=== PATIENT | female | born 1960 | race American Indian/Alaskan Native ===

== ENCOUNTER 2016-12-07 12:37 | Inpatient (IN) | payer MEDICAID ==
--- NOTE | 2016-12-07 13:47 | Emergency Department Report ---
Chief Complaint: Neuro Symptoms/Deficit Stated Complaint: LIGHT VAGINAL BLEEDING Time Seen by Provider: 12/07/16 13:20 - HPI History of Present Illness: 56-year-old female presents with a weight left-sided numbness and chest mumbled speech 1 week. Patient also complaining of sore throat and productive cough that causes her to have abdominal pain. The patient also complaining of vaginal bleeding 3-4 days. Positive for history of hypertension and dental tumor. Unable to obtain full history due to lack of responsiveness. - ROS Review of Systems: Per HPI - Exam Vital Signs: Vital Signs 12/07/16 13:09 Temperature 97.2 F L Pulse Rate 106 H Respiratory 18 Rate Blood Pressure 143/86 O2 Sat by Pulse 100 Oximetry Physical Exam: General: 56-year-old female that appears lethargic CV: Regular rate and rhythm. Lungs: Clear to auscultation bilaterally. Neuro: Alert and oriented 3, normal gait, mumbled speech, EOMs intact, asymmetrical facial sensation, GCS equals 15. MSE screening note: Focused history and physical exam performed. Due to findings the following was ordered: ED Disposition for MSE Condition: Stable
[2016-12-07 14:28] LABS: Basophils % (Auto) 0.5 % (0.0-1.8); Eosinophils % (Auto) 0.1 % (0.0-4.3); Hematocrit 39.6 % (30.3-42.9); Hemoglobin 13.2 gm/dl (10.1-14.3); Mean Corpuscular HGB Conc 33 % (30-34); Mean Corpuscular Hemoglobin 30 pg (28-32); Mean Corpuscular Volume 90 fl (79-97); Platelet Count 179 K/mm3 (140-440); Red Cell Distribution Width 14.1 % (13.2-15.2); White Blood Count 4.3 K/mm3 (4.5-11.0)
--- NOTE | 2016-12-07 14:45 | Emergency Department Report ---
HPI - General Chief Complaint: Neuro Symptoms/Deficit Time Seen by Provider: 12/07/16 13:56 - HPI HPI: This is a 56-year-old [place]ro[place] female who presents to the emergency Department with multiple complaints. Patient says she has been having a 3 to four-day history of a productive cough. The sputum is clear but she does not feel like she can completely expectorate. She complains of a 3 day history of some generalized abdominal pain that is worse than the upper quadrants. Associated with some constipation but she denies any nausea, vomiting, fever, dysuria, vaginal bleeding or discharge. Finally, the patient complains of a one -week history of left-sided facial droop, left arm numbness. The patient has not taken anything for any of her symptoms prior to presentation. She has a history of hypertension but denies any history of ND, CVA, PE/DVT. Patient does not currently have a primary care doctor. She has not taken anything for symptoms prior to presentation. No recent travel or sick contacts at home. ED Past Medical Hx - Past Medical History Hx Hypertension: Yes Hx Psychiatric Treatment: Yes (schizophrenia) Additional medical history: Constipation - Surgical History Additional Surgical History: pt reports tumor from left upper gums - Social History Smoking Status: Never Smoker Substance Use Type: Alcohol - Medications Home Medications: Home Medications Medication Instructions Recorded Confirmed Last Taken Type Hydrocortisone [Anucort-HC SUPPOS] 25 mg RC BID #14 supp.rect 01/25/16 12/07/16 Unknown Rx Loxapine Succinate [Loxapine] 10 mg PO DAILY 01/25/16 12/07/16 Unknown History Chlorhexidine Gluconate [Paroex] 473 ml MM BID #1 mouthwash 07/22/16 12/07/16 Unknown Rx ED Review of Systems ROS: Stated complaint: LIGHT VAGINAL BLEEDING Other details as noted in HPI Comment: All other systems reviewed and negative Constitutional: denies: chills, fever Eyes: denies: eye pain, eye discharge, vision change ENT: throat pain, other (facial droop) Respiratory: cough. denies: shortness of breath Cardiovascular: denies: chest pain, edema Gastrointestinal: abdominal pain, constipation. denies: nausea, vomiting Genitourinary: denies: urgency, dysuria, discharge Musculoskeletal: denies: back pain, joint swelling, arthralgia Skin: denies: rash, lesions Neurological: numbness. denies: headache Physical Exam - Physical Exam Vital Signs: Vital Signs 12/07/16 13:09 Temperature 97.2 F L Pulse Rate 106 H Respiratory 18 Rate Blood Pressure 143/86 O2 Sat by Pulse 100 Oximetry Physical Exam: GENERAL: The patient is well-developed well-nourished. HEENT: Normocephalic. Atraumatic. Extraocular motions are intact but there is a lag. Patient has moist mucous membranes. Pupils equal reactive to light bilaterally. There is left-sided nasolabial full paresis. No drooling or trismus. Unable to evaluate patient's ability to raise her eyebrows but she appears to be able to close both eyes tightly. NECK: Supple. Trachea is midline. CHEST/LUNGS: Clear to auscultation. There is no respiratory distress noted. HEART/CARDIOVASCULAR: Regular. There is no tachycardia. There is no gallop rub or murmur. ABDOMEN: Abdomen is soft, nontender. Patient has normal bowel sounds. There is no abdominal distention. SKIN: There is no rash. There is no diaphoresis. NEURO: The patient is awake, alert, and oriented. The patient is cooperative. There is decreased subjective left-sided facial and upper extremity sensation and/or numbness when compared to the right side. The patient has normal speech. No pronator drift. MUSCULOSKELETAL: There is no tenderness or deformity. There is no limitation range of motion. There is no evidence of acute injury. ED Course Vital Signs 12/07/16 13:09 Temperature 97.2 F L Pulse Rate 106 H Respiratory 18 Rate Blood Pressure 143/86 O2 Sat by Pulse 100 Oximetry ED Medical Decision Making - Lab Data Result diagrams: 12/07/16 14:16 12/07/16 14:16 - EKG Data -: EKG Interpreted by Me EKG shows normal: sinus rhythm, axis, intervals, QRS complexes, ST-T waves ( nonspecific ST-T waves) Rate: normal - EKG Data When compared to previous EKG there are: previous EKG unavailable Interpretation: nonspecific ST-T wave brian - Radiology Data Radiology results: report reviewed, image reviewed interpreted by me: Chest x-ray did not show any acute process. Heart is normal shape and size. No effusions. No pneumothorax. No signs of pneumonia seen. Abdominal x-ray does not show any acute process. CT of the head without contrast shows no acute intracranial CT abnormality. - Medical Decision Making 56 year old female presents with multiple complaints. The one that is the most concerning is left-sided facial droop and some left-sided numbness. There has been going on for a week and this alone would cause the patient not to be a TPA candidate. On physical exam the patient does have some left-sided facial/nasal labial fold paresis. The numbness is subjective. CT of head does not show any acute intracranial process. However with these findings the patient will be admitted to hospital for further evaluation and treatment and has been accepted for admission by the hospitalist, Dr. Mueller. Regarding the patient's cough, a chest x-ray was done that does not show any pneumonia. Possibly could be some bronchitis but there is no current bronchospasm. Patient's abdominal labs as well as x-ray also did not show any acute process and do not require any further imaging at this time. - Differential Diagnosis CVA, TIA, brain bleed, bronchitis, pneumonia Critical Care Time: No Critical care attestation.: If time is entered above; I have spent that time in minutes in the direct care of this critically ill patient, excluding procedure time. ED Disposition Clinical Impression: Facial droop, Numbness on left side, Cough Obesity Qualifiers: Obesity type: unspecified obesity type Obesity severity: morbid Qualified Code( s): E66.01 - Morbid (severe) obesity due to excess calories Disposition: OP ADMITTED IP TO THIS HOSP Is pt being admited?: Yes Does the pt Need Aspirin: Yes Condition: Stable Time of Disposition: 16:34
[2016-12-07 14:49] LABS: INR 0.99 (0.87-1.13)
[2016-12-07 14:50] LABS: Partial Thromboplastin Time 30.8 Sec. (24.2-36.6)
[2016-12-07 14:51] LABS: Creatine Kinase MB 1.4 ng/mL (0.0-4.0)
[2016-12-07 14:52] LABS: BUN/Creatinine Ratio 12.22; Blood Urea Nitrogen 11 mg/dL (7-17); Calcium 8.7 mg/dL (8.4-10.2); Carbon Dioxide 32 mmol/L (22-30); Chloride 93.1 mmol/L (98-107); Creatine Kinase 833 units/L (30-135); Glucose 126 mg/dL (65-100); Sodium 139 mmol/L (137-145)
[2016-12-07 14:56] LABS: Anion Gap 16 mmol/L
[2016-12-07 14:57] LABS: Potassium 2.5 mmol/L (3.6-5.0)
[2016-12-07] MEDS ORDERED: K-DUR PO ONE (14:58)
[2016-12-07 15:05] LABS: Albumin 3.7 g/dL (3.9-5); Albumin/Globulin Ratio 0.8 %; Bilirubin,Direct 0.2 mg/dL (0-0.2); Bilirubin,Indirect 0.9 mg/dL; Bilirubin,Total 1.1 mg/dL (0.1-1.2); Total Protein 8.5 g/dL (6.3-8.2)
--- NOTE | 2016-12-07 15:06 | Cat Scan Report ---
CT HEAD WITHOUT CONTRAST INDICATION: Suspected stroke. COMPARISON: None similar at this institution. FINDINGS: Noncontrast head CT demonstrates normal ventricles and sulci without acute or recent infarct, hemorrhage, mass effect or midline shift. No abnormal extra-axial fluid collections. Posterior fossa structures and basilar cisterns appear within normal limits. Streak artifact from few dental fillings. Normal eye globes. However, extensive left facial post surgical changes, including resection of left maxilla, including the maxillary sinus noted with some mesh reconstruction inferiorly. Small caro/clips also noted medially in the left orbit. Mild to moderate bilateral ethmoid sinusitis with mild bilateral frontal, sphenoid and right maxillary sinus mucosal thickening seen. Clear right mastoid air cells. Left otomastoiditis noted. Intact calvarium. Normal scalp. CONCLUSION: No acute intracranial CT abnormality in this patient with sinusitis, left otomastoiditis and left maxillary resection with reconstruction noted, as described. Please correlate. Thank you for the opportunity to participate in this patient's care.
[2016-12-07] MEDS ORDERED: NACL 0.9% 1000 ML 1,000 ML ONE (15:15)
--- NOTE | 2016-12-07 15:33 | XRay Report ---
ABDOMINAL SERIES INDICATION: Cough, abdominal pain. COMPARISON: None similar. FINDINGS: Abdominal series, 6 radiographs, demonstrate nonobstructive bowel gas pattern without focal suspicious calcifications, pneumatosis or pneumoperitoneum. Moderate colonic stool, greatest along the ascending colon/possible constipation. Few small pelvic phleboliths. Accompanying chest radiograph demonstrates borderline cardiomegaly. Slight bronchovascular prominence without dense focal consolidation, pleural effusions or CHF. Various bony degenerative changes, including multilevel spinal spurring as also possible bilateral SI joint sclerosis. CONCLUSION: Possible constipation and few other incidental findings, as above. Thank you for the opportunity to participate in this patient's care.
[2016-12-07 15:58] LABS: Urine Drugs of Abuse Note Disclamer
[2016-12-07 16:26] LABS: Bacteria,Urine 1+ /HPF (Negative); Bilirubin,Urine NEG (Negative); Blood,Urine MOD (Negative); Ketones,Urine TR mg/dL (Negative); Leukocyte Esterase,Urine NEG (Negative); Nitrite,Urine NEG (Negative); Urobilinogen,Urine < 2.0 mg/dL (<2.0)
[2016-12-07] MEDS: KCL 10MEQ/100ML 100 ML IV SCH ×4 (16:31→21:32)
[2016-12-07] MEDS ORDERED: BABY ASPIRIN PO ONE (16:34)
--- NOTE | 2016-12-07 16:35 | Admit Criteria Form ---
Admission Criteria Documentation: TRANSIENT ISCHEMIC ATTACK (TIA) Clinical Indications for Admission to Inpatient Care (Place 'X' for any and all applicable criteria): Admission is indicated for ANY ONE of the following(1)(2)(3)(4)(5): [ ]I. Immediate inpatient procedure is needed (eg, endarterectomy). [X ]II. Inpatient admission required rather than observation care (Also use Transient Ischemic Attack (TIA): Observation Care Criteria as appropriate) because of ANY ONE of the following: [X ]a) Focal neurologic signs or symptoms persist or recurring [ ]b) Cardiac arrhythmias of immediate concern [ ]c) Clinically significant cardiac disorder identified that requires inpatient care (eg, severe valvular disease, atrial myxoma, cardiomyopathy) [ ]d) Hypertension requiring inpatient treatment [ ]e) Parenteral anticoagulation required (eg, alternative forms of anticoagulation not appropriate or not feasible) as indicated by ALL of the following(13): [ ]i) Temporary subtherapeutic anticoagulation unacceptable because of high risk of short-term venous or arterial thromboembolism due to ANY ONE of the following(14)(15)(16): [ ]1) Atrial fibrillation suspected as etiology of TIA(17)(18)(19)(20)(21) [ ]2) Venous thromboembolism within past 12 months [ ]3) Underlying malignancy [ ]4) Patient with mechanical cardiac valve(22)( 23) [ ]5) Underlying hypercoagulable state (eg, protein C or protein S deficiency antithrombin deficiency, antiphospholipid antibodies) [ ]6) Patient at temporary high risk of thromboembolism (eg, status post orthopedic surgery) [ ]ii) Contraindications to outpatient use of "bridging" agent or alternative oral anticoagulant[B] as indicated by ALL of the following: [ ]1) Contraindication to outpatient use of low- molecular-weight heparin as "bridging" agent as indicated by ANY ONE of the following(15): [ ]A. Documented current or history of heparin-induced thrombocytopenia(24) [ ]B. Severe thrombocytopenia (eg, platelet count less than 50,000/mm3 (67m990/L) [ ]C. Documented allergy to heparin, low- molecular-weight heparin, or pork products [ ]D. Renal failure (creatinine clearance less than 30 mL/min/1.73m2 (0.50mL/sec/1.73m2) or on dialysis) [ ]E. Inability to manage self-injection ( eg, by patient, caregiver, or visiting nurse) [ ]2) Contraindication to outpatient use of fondaparinux as "bridging" agent as indicated by ANY ONE of the following(25)(26 )(27)(28): [ ]A. Severe thrombocytopenia (eg, platelet count less than 50,000/mm3 (50 x109/L)) [ ]B.Hypersensitivity to fondaparinux, related drugs, or product components [ ]C.Renal failure (creatinine clearance less than 30 mL/min/1.73m2 (0.50mL/sec/1.73m2) or on dialysis) [ ]D.Inability to manage self-injection ( eg, by patient, caregiver, or visiting nurse [ ]3. Oral direct thrombin inhibitor (eg, dabigatran) or oral coagulation factor Xa inhibitor (eg, rivaroxaban, apixaban) not appropriate as oral anticoagulation (eg, indication not appropriate) or contraindicated (eg, hypersensitivity, creatinine clearance less than 15 mL/min/1.73m2 ( 0.25 mL/sec/1.73m2) or on dialysis). [ ]f) Continuous IV infusion of anticoagulant, platelet inhibitor, vasoactive or antiarrhythmia(18)(19) [ ]g) Other condition, treatment, or monitoring requiring inpatient admission [ ]III. Contraindications and/or Inappropriate clinical situations for Observational Care in patients with Transient Ischemic Attack (TIA), when ANY ONE of the following is required: [ ]a) Patient with persistent or severe neurological deficit 24 [ ]b) Patient with acute CVA or other identified pathology should be admitted to inpatient for further care 25 [ ]IV. General contraindications and/or Inappropriate clinical situations for Observational Care in patients with Transient Ischemic Attack (TIA), when ANY ONE of the following is required: [ ]a) Prediction of prolongation of LOS based on ANY ONE of the following may be considered as a contraindication for observational care 2, 3, 4, 5, 6, 7, 8, 9, 10, 11 [ ]i) Age > 65 yrs. [ ]ii) Patient arriving by ambulance [ ]iii) Patient with high acuity [ ]iv) Patient requiring vital sign monitoring [ ]v) Patient on IV medication [ ]b) Systolic blood pressures 180mmHg 3,12 [ ]c) Patient with altered mental status including delirium and other alteration of consciousness, (3) [ ]d) Patient whose discharge disposition will be to a [place] [facility] home or rehabilitation home should not be managed in Emergency Department Observation Unit. CMS rule requires 3 days hospital stay before such placement.3,13 [ ]e) Patient with failure to thrive due to broad array of etiologies 3,16,17 [ ]f) Inability to ambulate 3,14 Extended stay beyond goal length of stay may be needed for(4)(30)(32): [ ]a) Parenteral anticoagulation required [ ]b) Dangerous arrhythmia [ ]c) Cardiac valvular disorder, atrial myxoma, cardiomyopathy [ ]d) Uncontrolled severe hypertension [ ]e) Severe carotid stenosis [ ]f) Active comorbidities (eg, heart failure) [ ]g) Extracranial vertebrobasilar disease(29) [ ]h) Clinical evolution of TIA into cerebrovascular accident (stroke) The original [employer] content created by [employer] has been revised. The portions of thecontent which have been revised are identified through the use of italic text or in bold, and [facility] has neither reviewed nor approved the modified material. All other unmodified content is copyright [employer] [facility]. Please see references footnoted in the original [employer] [facility] [facility] edition 2016 Admission Criteria Met: Yes
[2016-12-07 17:43] LABS: Basophils % (Auto) 0.6 % (0.0-1.8); Eosinophils % (Auto) 0.3 % (0.0-4.3); Hematocrit 38.2 % (30.3-42.9); Hemoglobin 12.6 gm/dl (10.1-14.3); Mean Corpuscular HGB Conc 33 % (30-34); Mean Corpuscular Hemoglobin 30 pg (28-32); Mean Corpuscular Volume 90 fl (79-97); Platelet Count 172 K/mm3 (140-440); Red Blood Count 4.25 M/mm3 (3.65-5.03); Red Cell Distribution Width 14.4 % (13.2-15.2); White Blood Count 4.3 K/mm3 (4.5-11.0)
[2016-12-07 17:58] LABS: INR 0.99 (0.87-1.13)
[2016-12-07 17:59] LABS: Partial Thromboplastin Time 31.5 Sec. (24.2-36.6)
[2016-12-07 18:06] LABS: Alanine Aminotransferase 27 units/L (7-56); Albumin 3.5 g/dL (3.9-5); Albumin/Globulin Ratio 0.8 %; Alkaline Phosphatase 54 units/L (35-129); Blood Urea Nitrogen 10 mg/dL (7-17); Calcium 8.3 mg/dL (8.4-10.2); Carbon Dioxide 34 mmol/L (22-30); Chloride 94.9 mmol/L (98-107); Glucose 106 mg/dL (65-100); Sodium 140 mmol/L (137-145); Total Protein 7.8 g/dL (6.3-8.2)
[2016-12-07 18:21] LABS: Anion Gap 14 mmol/L; Potassium 2.6 mmol/L (3.6-5.0)
--- NOTE | 2016-12-07 20:37 | Magnetic Resonance Report ---
FINAL REPORT PROCEDURE: MR BRAIN WO CON TECHNIQUE: Magnetic resonance imaging of the brain was performed without contrast material. HISTORY: Suspected Stroke COMPARISON: CT exam from the same day FINDINGS: Cerebellar tonsils are normally positioned cerebral ventricles are normal in size. No areas of restricted diffusion are seen. Mild mucosal thickening is seen in the paranasal sinuses with fluid in the left mastoid air cells and left middle ear. Normal flow voids are seen in the visualized portions of the vessels of the [place]. Cerebral ventricles are normal in size. A few tiny foci of increased T2 signal are seen in the supratentorial white matter likely due to minimal chronic small vessel ischemic changes are these may be within normal limits given their only a few of the lesions. No evidence of intracranial hemorrhage or mass effect is seen. IMPRESSION: Possible very minimal chronic small vessel ischemic changes are seen but no evidence of recent CVA is seen. Fluid in the left mastoid air cells and left middle ear could possibly be due to mastoiditis and otitis media.
--- NOTE | 2016-12-07 20:50 | Magnetic Resonance Report ---
FINAL REPORT PROCEDURE: MR MRA/MRV NECK WO CON TECHNIQUE: MR angiography of the cervical carotid and vertebral arteries was performed without IV injection of paramagnetic contrast. The source images were reconstructed in various views using maximum intensity projection. HISTORY: stroke COMPARISON: No prior studies are available for comparison. FINDINGS: Vertebral arteries are codominant. No vertebral artery stenosis is seen. Origins of the CCAs are not well visualized. There is likely negligible stenosis in the origins of the ICAs bilaterally, less than 20 percent. IMPRESSION: No significant stenosis is seen.
[2016-12-07] MEDS ORDERED: PERIDEX MM SCH (22:00)
[2016-12-07] MEDS ORDERED: ANUCORT-HC PR SCH (22:00)
[2016-12-07] MEDS: LOVENOX SUB-Q SCH (23:50)
--- NOTE | 2016-12-07 23:57 | History and Physical Report ---
History of Present Illness Date of examination: 12/07/16 Date of admission: 12/07/16 17:01 Chief complaint: Left facial droop and numbness History of present illness: Patient is a 56-year-old lady who lives home with a history of hypertension, memory loss and schizophrenia was noted to have had a left facial droop. Was brought to the emergency department. At emergency department, a family members stated that her face has returned to baseline status. Has slight right-sided upper arm weakness. Of note is the patient had surgery in the past for excision of a left sided [place] tumor. Patient also complains of cough was productive of yellowish sputum. Has any fever. No chest pain. No chills. CT scan of the brain was unremarkable. Electrolytes studies showed hypokalemia of 2.5. 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) Social history: denies: smoking, alcohol abuse, IV drug use Medications and Allergies Allergies Allergy/AdvReac Type Severity Reaction Status Date / Time No Known Allergies Allergy Verified 12/07/16 15:05 Home Medications Medication Instructions Recorded Confirmed Last Taken Type Hydrocortisone [Anucort-HC SUPPOS] 25 mg RC BID #14 supp.rect 01/25/16 12/07/16 Unknown Rx Loxapine Succinate [Loxapine] 10 mg PO DAILY 01/25/16 12/07/16 Unknown History Chlorhexidine Gluconate [Paroex] 473 ml MM BID #1 mouthwash 07/22/16 12/07/16 Unknown Rx Active Meds: Active Medications Atorvastatin Calcium (Lipitor) 20 mg PO QHS [facility] Last Admin: 12/07/16 23:50 Dose: 20 mg Chlorhexidine Gluconate (Peridex) 473 ml MM BID [facility] Enoxaparin Sodium (Lovenox) 40 mg SUB-Q QDAY@2200 [facility] Last Admin: 12/07/16 23:50 Dose: 40 mg Hydrocortisone Acetate (Anucort-Hc) [address] BID [facility] Exam - Physical Exam Narrative exam: Constitutional: Well Nouridhed and Well developed. Head: NC/ AT Eyes: Denies any visual impairments. No discharge from the eyes Nose: Denies any rhinorrhea or epistaxis Throats: Denies any post nasal drainage. Ears: Denies any hearing deficits Cardiovascular system: Denies any chest pain, shortness of breath, orthopnea, paroxysmal nocturnal dyspnea, or palpitation. Respiratory system: Denies any cough, difficulty breathing, wheezing, pleuritic chest pain, Gastrointestinal system: Denies any abdominal pain, nausea vomiting, hematemesis or melena. Neurological system: Denies any headache, slurred speech, facial droop, lateralizing weakness Genitalia system: Denies any dysuria, urinary frequency or urgency, urethral discharge Skin: No rashes, hyperpigmented spots. Hematological: Denies any cervical tenderness hemorrhages or petechia. Immunological: Denies any multiple septic spots, Lymphatic: Denies any generalized lymphadenopathy. Endocrine: Denies any polyuria, polydipsia, polyphagia. No heat or cold intolerance. - Constitutional Vitals: Temp Pulse Resp BP Pulse Ox 97.7 F 97 H 20 155/99 97 12/07/16 21:41 12/07/16 21:41 12/07/16 21:41 12/07/16 21:41 12/07/16 21:45 General appearance: Present: no acute distress, well-nourished - EENT Eyes: Present: PERRL ENT: hearing intact, clear oral mucosa - Neck Neck: Present: supple, normal ROM - Respiratory Respiratory effort: normal Respiratory: bilateral: CTA - Cardiovascular Heart Sounds: Present: S1 & S2. Absent: rub, click - Extremities Extremities: pulses symmetrical, No edema Peripheral Pulses: within normal limits - Abdominal General gastrointestinal: Present: soft, non-tender, non-distended, normal bowel sounds Female genitourinary: Present: normal - Integumentary Integumentary: Present: clear, warm, dry - Musculoskeletal Musculoskeletal: gait normal, strength equal bilaterally - Psychiatric Psychiatric: appropriate mood/affect, intact judgment & insight - Neurologic Neurologic: CNII-XII intact, moves all extremities Results - Labs CBC & Chem 7: 12/07/16 17:29 12/07/16 17:29 Labs: Abnormal lab results 12/07/16 12/07/16 12/07/16 Range/Units 17:29 17:29 17:29 WBC 4.3 L (4.5-11.0) K/mm3 Lee % (Auto) 10.7 H (0.0-7.3) % Lymph # 0.9 L (1.2-5.4) K/mm3 Thrombin Time 20.0 H (15.1-19.6) Sec. Potassium 2.6 L* (3.6-5.0) mmol/L Chloride 94.9 L (98-107) mmol/L Carbon Dioxide 34 H (22-30) mmol/L Glucose 106 H (65-100) mg/dL Calcium 8.3 L (8.4-10.2) mg/dL AST 44 H (5-40) units/L Albumin 3.5 L (3.9-5) g/dL
[2016-12-08 06:01] LABS: Alanine Aminotransferase 25 units/L (7-56); Albumin 3.4 g/dL (3.9-5); Albumin/Globulin Ratio 0.9 %; Alkaline Phosphatase 50 units/L (35-129); BUN/Creatinine Ratio 11.42; Blood Urea Nitrogen 8 mg/dL (7-17); Calcium 8.1 mg/dL (8.4-10.2); Carbon Dioxide 33 mmol/L (22-30); Chloride 95.7 mmol/L (98-107); Glucose 109 mg/dL (65-100); Magnesium 2.3 mg/dL (1.7-2.3); Phosphorous 2.3 mg/dL (2.5-4.5); Sodium 140 mmol/L (137-145); Total Protein 7.2 g/dL (6.3-8.2)
[2016-12-08 06:09] LABS: Anion Gap 14 mmol/L; Potassium 2.4 mmol/L (3.6-5.0)
[2016-12-08] MEDS ORDERED: K-DUR PO SCH (07:00)
[2016-12-08] MEDS: K-DUR PO SCH ×2 (09:41→17:25)
[2016-12-08] MEDS: PERIDEX MM SCH ×2 (09:43→21:57)
[2016-12-08] MEDS ORDERED: LOVENOX SUB-Q SCH (10:00)
[2016-12-08] MEDS: NACL 0.45% IV SCH (11:09)
[2016-12-08] MEDS: KCL IV SCH (11:09)
--- NOTE | 2016-12-08 11:46 | Progress Note ---
Assessment and Plan Assessment and plan: 56 obese woman who presented with left sided facial droop, which is now resolved 1. suspected TIA MRI negative, preventive measures, asa, statin, BP control 2. Hypokalemia replete IV and PO 3. HTN actually normotensive and not requiring meds 4. Morbid obesity calorie controlled diet History Interval history: Denies any further facial droop, no focal weakness. Hospitalist Physical - Physical exam Narrative exam: General: Patient appears well in no distress, obese HEENT: MMM, EOMI cardiac: S1-S2 heard lungs: clear to auscultation, abdomen: soft, nontender, nondistended bowel sounds positive extremities: no edema clubbing or cyanosis Skin: no rash or lesion Neuro: no focal deficit Psych: appropriate behavior and mood, cognition intact - Constitutional Vitals: Temp Pulse Resp BP Pulse Ox 98.7 F 88 16 131/73 95 12/08/16 08:00 12/08/16 08:00 12/08/16 08:00 12/08/16 08:00 12/08/16 08:47 General appearance: Present: no acute distress, well-nourished Results - Labs CBC & Chem 7: 12/07/16 17:29 12/08/16 05:05 Labs: Laboratory Last Values WBC 4.3 K/mm3 (4.5-11.0) L 12/07/16 17:29 RBC 4.25 M/mm3 (3.65-5.03) 12/07/16 17:29 Hgb 12.6 gm/dl (10.1-14.3) 12/07/16 17:29 Hct 38.2 % (30.3-42.9) 12/07/16 17:29 MCV 90 fl (79-97) 12/07/16 17:29 MCH 30 pg (28-32) 12/07/16 17:29 MCHC 33 % (30-34) 12/07/16 17:29 RDW 14.4 % (13.2-15.2) 12/07/16 17:29 Plt Count 172 K/mm3 (140-440) 12/07/16 17:29 Lymph % (Auto) 20.6 % (13.4-35.0) 12/07/16 17:29 [place] % (Auto) 10.7 % (0.0-7.3) H 12/07/16 17:29 Eos % (Auto) 0.3 % (0.0-4.3) 12/07/16 17:29 Baso % (Auto) 0.6 % (0.0-1.8) 12/07/16 17:29 Lymph # 0.9 K/mm3 (1.2-5.4) L 12/07/16 17:29 [place] # 0.5 K/mm3 (0.0-0.8) 12/07/16 17:29 Eos # 0.0 K/mm3 (0.0-0.4) 12/07/16 17:29 Baso # 0.0 K/mm3 (0.0-0.1) 12/07/16 17:29 Seg Neutrophils % 67.8 % (40.0-70.0) 12/07/16 17:29 Seg Neutrophils # 2.9 K/mm3 (1.8-7.7) 12/07/16 17:29 PT 13.0 Sec. (12.2-14.9) 12/07/16 17:29 INR 0.99 (0.87-1.13) 12/07/16 17:29 APTT 31.5 Sec. (24.2-36.6) 12/07/16 17:29 Thrombin Time 20.0 Sec. (15.1-19.6) H 12/07/16 17:29 Sodium 140 mmol/L (137-145) 12/08/16 05:05 Potassium 2.4 mmol/L (3.6-5.0) L* 12/08/16 05:05 Chloride 95.7 mmol/L (98-107) L 12/08/16 05:05 Carbon Dioxide 33 mmol/L (22-30) H 12/08/16 05:05 Anion Gap 14 mmol/L 12/08/16 05:05 BUN 8 mg/dL (7-17) 12/08/16 05:05 Creatinine 0.7 mg/dL (0.7-1.2) 12/08/16 05:05 Estimated GFR > 60 ml/min 12/08/16 05:05 BUN/Creatinine Ratio 11.42 % 12/08/16 05:05 Glucose 109 mg/dL (65-100) H 12/08/16 05:05 Calcium 8.1 mg/dL (8.4-10.2) L 12/08/16 05:05 Phosphorus 2.3 mg/dL (2.5-4.5) L 12/08/16 05:05 Magnesium 2.3 mg/dL (1.7-2.3) 12/08/16 05:05 Total Bilirubin 1.0 mg/dL (0.1-1.2) 12/08/16 05:05 Direct Bilirubin 0.2 mg/dL (0-0.2) 12/07/16 14:16 Indirect Bilirubin 0.9 mg/dL 12/07/16 14:16 AST 39 units/L (5-40) 12/08/16 05:05 ALT 25 units/L (7-56) 12/08/16 05:05 Alkaline Phosphatase 50 units/L (35-129) 12/08/16 05:05 Total Creatine Kinase 833 units/L (30-135) H 12/07/16 14:16 CK-MB (CK-2) 1.4 ng/mL (0.0-4.0) 12/07/16 14:16 CK-MB (CK-2) Rel Index 0.1 (0-4) 12/07/16 14:16 Troponin T < 0.010 ng/mL (0.00-0.029) 12/07/16 14:16 Total Protein 7.2 g/dL (6.3-8.2) 12/08/16 05:05 Albumin 3.4 g/dL (3.9-5) L 12/08/16 05:05 Albumin/Globulin Ratio 0.9 % 12/08/16 05:05 Lipase 36 units/L (13-60) 12/07/16 14:16 TSH 2.230 mlU/mL (0.270-4.200) 12/07/16 15:27 Urine Color Yellow (Yellow) 12/07/16 15:47 Urine Turbidity Clear (Clear) 12/07/16 15:47 Urine pH 6.0 (5.0-7.0) 12/07/16 15:47 Ur Specific [place] 1.015 (1.003-1.030) 12/07/16 15:47 Urine Protein 30 mg/dl mg/dL (Negative) 12/07/16 15:47 Urine Glucose (UA) Neg mg/dL (Negative) 12/07/16 15:47 Urine Ketones Tr mg/dL (Negative) 12/07/16 15:47 Urine Blood Mod (Negative) 12/07/16 15:47 Urine Nitrite Neg (Negative) 12/07/16 15:47 Urine Bilirubin Neg (Negative) 12/07/16 15:47 Urine Urobilinogen < 2.0 mg/dL (<2.0) 12/07/16 15:47 Ur Leukocyte Esterase Neg (Negative) 12/07/16 15:47 Urine WBC (Auto) 4.0 /HPF (0.0-6.0) 12/07/16 15:47 Urine RBC (Auto) 2.0 /HPF (0.0-6.0) 12/07/16 15:47 U Epithel Cells (Auto) 3.0 /HPF (0-13.0) 12/07/16 15:47 Urine Bacteria (Auto) 1+ /HPF (Negative) 12/07/16 15:47 Urine Opiates Screen Presumptive negative 12/07/16 15:47 Urine Methadone Screen Presumptive negative 12/07/16 15:47 Ur Barbiturates Screen Presumptive negative 12/07/16 15:47 Ur Phencyclidine Scrn Presumptive negative 12/07/16 15:47 Ur Amphetamines Screen Presumptive negative 12/07/16 15:47 U Benzodiazepines Scrn Presumptive negative 12/07/16 15:47 Urine Cocaine Screen Presumptive negative 12/07/16 15:47 U Marijuana (THC) Screen Presumptive negative 12/07/16 15:47 Drugs of Abuse Note Disclamer 12/07/16 15:47
--- NOTE | 2016-12-08 13:25 | Consultation ---
History of Present Illness Consult date: 12/08/16 Chief complaint: left facial droop and weakness History of present illness: This is a 56 YO F who was brought in by family for facial droop and weakness on the left, all of which have since resolved. Pt is being worked up for TIa. MRI negative for acute stroke. Currently pt is feeling fine with no complaints. 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) Social history: denies: smoking, alcohol abuse, IV drug use Family history: hypertension Medications and Allergies Allergies Allergy/AdvReac Type Severity Reaction Status Date / Time No Known Allergies Allergy Verified 12/07/16 15:05 Home Medications Medication Instructions Recorded Confirmed Last Taken Type Hydrocortisone [Anucort-HC SUPPOS] 25 mg RC BID #14 supp.rect 01/25/16 12/07/16 Unknown Rx Loxapine Succinate [Loxapine] 10 mg PO DAILY 01/25/16 12/07/16 Unknown History Chlorhexidine Gluconate [Paroex] 473 ml MM BID #1 mouthwash 07/22/16 12/07/16 Unknown Rx Active Meds: Active Medications Aspirin (Aspirin) 325 mg PO QDAY [facility] Atorvastatin Calcium (Lipitor) 20 mg PO QHS [facility] Last Admin: 12/07/16 23:50 Dose: 20 mg Chlorhexidine Gluconate (Peridex) 15 ml MM BID [facility] Last Admin: 12/08/16 09:43 Dose: 15 ml Enoxaparin Sodium (Lovenox) 40 mg SUB-Q QDAY@2200 [facility] Last Admin: 12/07/16 23:50 Dose: 40 mg Potassium Chloride 80 meq/ (Sodium Chloride) 1,040 mls @ 100 mls/hr IV DIRECT [facility] Last Admin: 12/08/16 11:09 Dose: 100 mls/hr Potassium Chloride (K-Dur) 40 meq PO Q8H [facility] Stop: 12/10/16 01:01 Last Admin: 12/08/16 09:41 Dose: 40 meq Review of Systems Neurological: other (facial droop) Physical Examination - Vital Signs Vital Signs: Vital Signs Temp Pulse Resp BP Pulse Ox 97.2 F L 106 H 18 143/86 100 12/07/16 13:09 12/07/16 13:09 12/07/16 13:09 12/07/16 13:09 12/07/16 13:09 - EENT EENT: Present: PERRL - Respiratory Respiratory: Present: lungs clear - Cardiovascular Cardiovascular: Present: regular rate - Neurologic Cranial nerve examination: PERRL, EOMI, VFF, face symmetric, tongue midline Speech examination: intact Sensorimotor examination: intact Detailed motor examination: grossly full strength in Detailed sensory examination: intact Reflexes: 1+: ankle, bicep, knee, tricep Results - Laboratory Findings CBC and BMP: 12/07/16 17:29 12/08/16 05:05 Abnormal Lab Findings: Abnormal Labs 12/07/16 12/07/16 12/07/16 17:29 17:29 17:29 WBC 4.3 L [place] % (Auto) 10.7 H Lymph # 0.9 L Thrombin Time 20.0 H Potassium 2.6 L* Chloride 94.9 L Carbon Dioxide 34 H Glucose 106 H Calcium 8.3 L Phosphorus AST 44 H Albumin 3.5 L 12/08/16 05:05 WBC [place] % (Auto) Lymph # Thrombin Time Potassium 2.4 L* Chloride 95.7 L Carbon Dioxide 33 H Glucose 109 H Calcium 8.1 L Phosphorus 2.3 L AST Albumin 3.4 L - Diagnostic Findings Additional findings: MRI Brain with no acute changes Assessment and Plan TIA: Recommend: Agree with aspirin, lovenox and lipitor as you are doing Continue care for her medical issues as you are doing Pt should be discharged with aspirin and statin echo, carotids thank you for this consult. Call with questions.
[2016-12-08] MEDS: ASPIRIN PO SCH (14:07)
[2016-12-08] MEDS: LOVENOX SUB-Q SCH (21:56)
[2016-12-09] MEDS: K-DUR PO SCH (05:51)
[2016-12-09] MEDS: NACL 0.45% IV SCH (06:20)
[2016-12-09] MEDS: KCL IV SCH (06:20)
[2016-12-09 08:08] LABS: BUN/Creatinine Ratio 11.42; Blood Urea Nitrogen 8 mg/dL (7-17); Calcium 7.9 mg/dL (8.4-10.2); Carbon Dioxide 26 mmol/L (22-30); Chloride 99.8 mmol/L (98-107); Cholesterol 123 mg/dL (50-199); Glucose 101 mg/dL (65-100); HDL Cholesterol 38 mg/dL (40-59); LDL Cholesterol,Direct 67 mg/dL (50-130); Potassium 3.6 mmol/L (3.6-5.0); Sodium 139 mmol/L (137-145); Triglycerides 90 mg/dL (2-149)
[2016-12-09 08:09] LABS: Anion Gap 17 mmol/L
--- NOTE | 2016-12-09 11:33 | Progress Note ---
Assessment and Plan Assessment and plan: 56 obese woman who presented with left sided facial droop, which is now resolved 1. suspected TIA MRI negative, preventive measures, asa, statin, BP control neuro input appreciated, obtain echo, appears that facial droop is chronic and does not have any acute stroke related symptoms 2. Hypokalemia replete IV and PO, improving 3. HTN actually normotensive and not requiring meds 4. Morbid obesity calorie controlled diet 5. Constipation -stool softeners 6. Hx of Post menopausal spotting -outpatient MARKETING DESIGNER fup 7. Acute bronchitis low dose steroid, nebulizer, abx and cough syrup History Interval history: She had previous surgery to her cranium and has chronic facial droop, states that it is at baseline. She is c/o constipation Hospitalist Physical - Physical exam Narrative exam: General: Patient appears well in no distress, obese HEENT: MMM, EOMI cardiac: S1-S2 heard lungs: clear to auscultation, abdomen: soft, nontender, nondistended bowel sounds positive extremities: no edema clubbing or cyanosis Skin: no rash or lesion Neuro: no focal deficit Psych: appropriate behavior and mood, cognition intact - Constitutional Vitals: Temp Pulse Resp BP Pulse Ox 98.5 F 87 18 122/79 97 12/09/16 04:00 12/09/16 07:15 12/09/16 07:15 12/09/16 07:15 12/09/16 07:15 General appearance: Present: no acute distress, well-nourished Results - Labs CBC & Chem 7: 12/07/16 17:29 12/09/16 07:15 Labs: Laboratory Last Values WBC 4.3 K/mm3 (4.5-11.0) L 12/07/16 17:29 RBC 4.25 M/mm3 (3.65-5.03) 12/07/16 17:29 Hgb 12.6 gm/dl (10.1-14.3) 12/07/16 17:29 Hct 38.2 % (30.3-42.9) 12/07/16 17:29 MCV 90 fl (79-97) 12/07/16 17:29 MCH 30 pg (28-32) 12/07/16 17:29 MCHC 33 % (30-34) 12/07/16 17:29 RDW 14.4 % (13.2-15.2) 12/07/16 17:29 Plt Count 172 K/mm3 (140-440) 12/07/16 17:29 Lymph % (Auto) 20.6 % (13.4-35.0) 12/07/16 17:29 [place] % (Auto) 10.7 % (0.0-7.3) H 12/07/16 17:29 Eos % (Auto) 0.3 % (0.0-4.3) 12/07/16 17:29 Baso % (Auto) 0.6 % (0.0-1.8) 12/07/16 17:29 Lymph # 0.9 K/mm3 (1.2-5.4) L 12/07/16 17:29 [place] # 0.5 K/mm3 (0.0-0.8) 12/07/16 17:29 Eos # 0.0 K/mm3 (0.0-0.4) 12/07/16 17:29 Baso # 0.0 K/mm3 (0.0-0.1) 12/07/16 17:29 Seg Neutrophils % 67.8 % (40.0-70.0) 12/07/16 17:29 Seg Neutrophils # 2.9 K/mm3 (1.8-7.7) 12/07/16 17:29 PT 13.0 Sec. (12.2-14.9) 12/07/16 17:29 INR 0.99 (0.87-1.13) 12/07/16 17:29 APTT 31.5 Sec. (24.2-36.6) 12/07/16 17:29 Thrombin Time 20.0 Sec. (15.1-19.6) H 12/07/16 17:29 Sodium 139 mmol/L (137-145) 12/09/16 07:15 Potassium 3.6 mmol/L (3.6-5.0) D 12/09/16 07:15 Chloride 99.8 mmol/L (98-107) 12/09/16 07:15 Carbon Dioxide 26 mmol/L (22-30) D 12/09/16 07:15 Anion Gap 17 mmol/L 12/09/16 07:15 BUN 8 mg/dL (7-17) 12/09/16 07:15 Creatinine 0.7 mg/dL (0.7-1.2) 12/09/16 07:15 Estimated GFR > 60 ml/min 12/09/16 07:15 BUN/Creatinine Ratio 11.42 % 12/09/16 07:15 Glucose 101 mg/dL (65-100) H 12/09/16 07:15 POC Glucose 106 (70-105) H 12/08/16 15:46 Calcium 7.9 mg/dL (8.4-10.2) L 12/09/16 07:15 Phosphorus 2.3 mg/dL (2.5-4.5) L 12/08/16 05:05 Magnesium 2.3 mg/dL (1.7-2.3) 12/08/16 05:05 Total Bilirubin 1.0 mg/dL (0.1-1.2) 12/08/16 05:05 Direct Bilirubin 0.2 mg/dL (0-0.2) 12/07/16 14:16 Indirect Bilirubin 0.9 mg/dL 12/07/16 14:16 AST 39 units/L (5-40) 12/08/16 05:05 ALT 25 units/L (7-56) 12/08/16 05:05 Alkaline Phosphatase 50 units/L (35-129) 12/08/16 05:05 Total Creatine Kinase 833 units/L (30-135) H 12/07/16 14:16 CK-MB (CK-2) 1.4 ng/mL (0.0-4.0) 12/07/16 14:16 CK-MB (CK-2) Rel Index 0.1 (0-4) 12/07/16 14:16 Troponin T < 0.010 ng/mL (0.00-0.029) 12/07/16 14:16 Total Protein 7.2 g/dL (6.3-8.2) 12/08/16 05:05 Albumin 3.4 g/dL (3.9-5) L 12/08/16 05:05 Albumin/Globulin Ratio 0.9 % 12/08/16 05:05 Triglycerides 90 mg/dL (2-149) 12/09/16 07:15 Cholesterol 123 mg/dL (50-199) 12/09/16 07:15 LDL Cholesterol Direct 67 mg/dL (50-130) 12/09/16 07:15 HDL Cholesterol 38 mg/dL (40-59) L 12/09/16 07:15 Cholesterol/HDL Ratio 3.23 % 12/09/16 07:15 Lipase 36 units/L (13-60) 12/07/16 14:16 TSH 2.230 mlU/mL (0.270-4.200) 12/07/16 15:27 Urine Color Yellow (Yellow) 12/07/16 15:47 Urine Turbidity Clear (Clear) 12/07/16 15:47 Urine pH 6.0 (5.0-7.0) 12/07/16 15:47 Ur Specific [place] 1.015 (1.003-1.030) 12/07/16 15:47 Urine Protein 30 mg/dl mg/dL (Negative) 12/07/16 15:47 Urine Glucose (UA) Neg mg/dL (Negative) 12/07/16 15:47 Urine Ketones Tr mg/dL (Negative) 12/07/16 15:47 Urine Blood Mod (Negative) 12/07/16 15:47 Urine Nitrite Neg (Negative) 12/07/16 15:47 Urine Bilirubin Neg (Negative) 12/07/16 15:47 Urine Urobilinogen < 2.0 mg/dL (<2.0) 12/07/16 15:47 Ur Leukocyte Esterase Neg (Negative) 12/07/16 15:47 Urine WBC (Auto) 4.0 /HPF (0.0-6.0) 12/07/16 15:47 Urine RBC (Auto) 2.0 /HPF (0.0-6.0) 12/07/16 15:47 U Epithel Cells (Auto) 3.0 /HPF (0-13.0) 12/07/16 15:47 Urine Bacteria (Auto) 1+ /HPF (Negative) 12/07/16 15:47 Urine Opiates Screen Presumptive negative 12/07/16 15:47 Urine Methadone Screen Presumptive negative 12/07/16 15:47 Ur Barbiturates Screen Presumptive negative 12/07/16 15:47 Ur Phencyclidine Scrn Presumptive negative 12/07/16 15:47 Ur Amphetamines Screen Presumptive negative 12/07/16 15:47 U Benzodiazepines Scrn Presumptive negative 12/07/16 15:47 Urine Cocaine Screen Presumptive negative 12/07/16 15:47 U Marijuana (THC) Screen Presumptive negative 12/07/16 15:47 Drugs of Abuse Note Disclamer 12/07/16 15:47
[2016-12-09] MEDS: DELTASONE PO SCH (14:25)
[2016-12-09] MEDS: ASPIRIN PO SCH (14:25)
[2016-12-09] MEDS: PERIDEX MM SCH ×2 (14:25→21:34)
[2016-12-09] MEDS: ROBITUSSIN DM PO SCH ×2 (14:26→21:33)
[2016-12-09] MEDS: MIRALAX 3350 PO SCH ×2 (14:26→21:30)
[2016-12-09] MEDS: ZITHROMAX PO SCH (14:27)
[2016-12-09] MEDS: PROVENTIL IH SCH ×2 (15:22→19:43)
--- NOTE | 2016-12-09 19:01 | Echocardiography Report ---
Transthoracic Echocardiogram Indication: HEART FAILURE BP: 122/79 HR: 92 Findings Procedure Info: The study quality is fair. The study is technically limited due to patient body habitus. The study was technically limited due to the patient's inability to lay in the left lateral decubitus position. Left Ventricle: The left ventricular chamber size is normal. Mild concentric left ventricular hypertrophy is observed. Global left ventricular wall motion and contractility are within normal limits. Global left ventricular systolic function is normal. The estimated ejection fraction is 60-65%. Left Atrium: The left atrial chamber size is normal. Right Ventricle: The right ventricular cavity size is normal. The right ventricular global systolic function is normal. Right Atrium: The right atrium appears normal. The right atrial cavity size is normal. Aortic Valve: The aortic valve is trileaflet. The aortic valve leaflets are mildly thickened. There is no evidence of aortic regurgitation. There is no evidence of aortic stenosis. Mitral Valve: The mitral valve leaflets appear myxomatous. The mitral valve leaflets are mildly thickened. There is trace of mitral regurgitation. There is no evidence of mitral stenosis. Tricuspid Valve: There is mild tricuspid regurgitation. No pulmonary hypertension is noted. There is no tricuspid stenosis. Pulmonic Valve: The pulmonic valve is not well visualized. There is no evidence of pulmonic regurgitation. There is no pulmonic stenosis. Pericardium: There is no pericardial effusion. No pleural effusion is present. Aorta: The aortic root is not well visualized. There is no dilatation of the aortic root. Pulmonary Artery: The main pulmonary artery is not well visualized. Venous: The inferior vena cava appears normal in size. There is a greater than 50% respiratory change in the inferior vena cava dimension. Measurements Chambers MM Name Value Normal Range IVSd (MM) 1.04 cm (0.6 - 1.1) LVPWd (MM) 1.25 cm (0.6 - 1.1) IVS:LVPW ratio 0.83 ratio - LVIDd (MM) 5.11 cm (3.7 - 5.6) LVIDs (MM) 2.82 cm (2 - 2.8) LV FS (Teichholz) (MM) 44.8 % - LV FS (cube) (MM) 44.8 % - EF Teichholz (MM) 75.7 % - Ao root diameter (MM) 2.9 cm (2 - 3.7) LA dimension (AP) MM 4.5 cm (1.9 - 4) LA:Ao ratio (MM) 1.55 ratio - AV cusp separation (MM) 2.2 cm (1.5 - 2.6) Chambers 2D Name Value Normal Range IVSd (2D) 1.15 cm (0.6 - 1.1) LVPWd 1.1 cm - LVPWd (2D) 1.13 cm (0.6 - 1.1) IVS:LVPW ratio (2D) 1.02 ratio - LVIDd 3.5 cm - LVIDs 2 cm - LVIDd (2D) 3.5 cm (3.7 - 5.6) LVIDs (2D) 1.96 cm (2 - 3.8) LV FS (Teichholz) (2D) 44 % - LV FS (cube) (2D) 44 % - LV EF (2D) 76 % - EF Teichholz (2D) 76.2 % - LA dimension 2.8 cm - Ao root diameter (2D) 2.6 cm (2 - 3.7) LA dimension (AP) 2D 2.8 cm (1.9 - 4) LA:Ao ratio (2D) 1.08 ratio - Volumes/Mass Name Value Normal Range LA ESV SP 4CH (MOD) 53 ml - LV EDV SP 4CH (MOD) 91 ml - LV ESV SP 4CH (MOD) 35 ml - EF SP 4CH (MOD) 62 % - Diastolic/Systolic Function Name Value Normal Range MV E-wave Vmax 0.62 m/sec - MV deceleration time 201 msec - MV A-wave Vmax 0.72 m/sec - MV E:A ratio 0.9 ratio - LV septal e' Vmax 0.09 m/sec - LV lateral e' Vmax 0.1 m/sec - LV E:e' septal ratio 6.8 ratio - LV E:e' lateral ratio 6.2 ratio - Aortic Valve Name Value Normal Range AV Vmax 1.51 m/sec - AV peak gradient 9 mmHg - LVOT diameter 1.7 cm - LVOT Vmax 1.23 m/sec - LVOT peak gradient 6 mmHg - AERLENE (continuity Vmax) 1.85 cm2 - Pulmonic Valve/Qp:Qs Name Value Normal Range PV Vmax 0.64 m/sec - PV peak gradient 2 mmHg - PV acceleration time 92 msec -
[2016-12-09] MEDS: LOVENOX SUB-Q SCH (21:30)
[2016-12-09] MEDS ORDERED: SENOKOT S PO SCH (22:00)
[2016-12-10 07:32] LABS: Anion Gap 18 mmol/L; BUN/Creatinine Ratio 11.66; Blood Urea Nitrogen 7 mg/dL (7-17); Calcium 8.3 mg/dL (8.4-10.2); Carbon Dioxide 25 mmol/L (22-30); Chloride 102.6 mmol/L (98-107); Glucose 133 mg/dL (65-100); Potassium 3.5 mmol/L (3.6-5.0); Sodium 142 mmol/L (137-145)
[2016-12-10] MEDS: PROVENTIL IH SCH (08:42)
[2016-12-10] MEDS: ZITHROMAX PO SCH (10:35)
[2016-12-10] MEDS: MIRALAX 3350 PO SCH (10:35)
[2016-12-10] MEDS: ASPIRIN PO SCH (10:35)
[2016-12-10] MEDS: DELTASONE PO SCH (10:35)
--- NOTE | 2016-12-10 10:51 | Discharge Summary ---
Providers - Providers Date of Admission: 12/07/16 17:01 Attending physician: FRANKLIN FOFANA MD 12/07/16 17:19 Physical Therapy Evaluation and Treat [CONS] Urgent Comment: Reason For Exam: stroke 12/08/16 08:27 Consult to Physician [CONS] Routine Consulting Provider: CAPRI MENDEZ Reason For Exam: cva Place consult to:: inhouse Notified:: yes Phone number called:: [phone] Was contact made?: Yes If yes, spoke with:: left voicemail Time called:: 08:51 Primary care physician: CLINIC MANAGER Hospitalization Condition: Stable Hospital course: 56 obese woman who presented with left sided facial droop, and constipation. 1. Facial Droop MRI negative, and echo negative, preventive measures, asa, statin, BP control she was seen by neurology who recommended preventive measures, her sister later visited the hospital and confirmed that facial droop is chronic and a sequelae of previous facial surgery 2. Hypokalemia she had severe hypokalemia which was repleted and she is going home on K supplements 3. HTN Blood pressure was monitored and found to be actually normotensive and not requiring meds 4. Morbid obesity calorie controlled diet 5. Constipation She was started on stool softeners 6. Hx of Post menopausal spotting -outpatient SLEEP SCIENTIST fup was recommended for the patient, her sister said she'll set up an appointment 7. Acute bronchitis She was treated with low dose steroid, nebulizer, abx and cough syrup Disposition: DC/TX HOME UNDER HOME HEALTH Time spent for discharge: 35 minutes Core Measure Documentation - Palliative Care Palliative Care/ Comfort Measures: Not Applicable - Core Measures Any of the following diagnoses?: none Exam - Physical Exam Narrative exam: General: Patient appears well in no distress, obese HEENT: MMM, EOMI cardiac: S1-S2 heard lungs: clear to auscultation, abdomen: soft, nontender, nondistended bowel sounds positive extremities: no edema clubbing or cyanosis Skin: no rash or lesion Neuro: no focal deficit Psych: appropriate behavior and mood, cognition intact - Constitutional Vitals: Temp Pulse Resp BP Pulse Ox 98.5 F 108 H 18 136/90 97 12/10/16 09:00 12/10/16 09:00 12/10/16 09:00 12/10/16 09:00 01/19/17 09:00 Plan Follow up with: PRIMARY CARE, [Primary Care Provider] - 3-5 Days Prescriptions: AtorvaSTATin [Lipitor] 20 mg PO QHS #30 tablet Aspirin EC [Aspirin Enteric Coated TAB] 81 mg PO QDAY #30 tablet. predniSONE [Deltasone] 20 mg PO QDAY #4 tablet Potassium Chloride [K-Dur] 40 meq PO DAILY #10 tablet Polyethylene Glycol 3350 [Miralax 3350] 17 gm PO DAILY #30 powd.pack ALBUTEROL Inhaler [ProAir HFA Inhaler] 2 puff IH QID PRN #1 inhalation PRN Reason: Shortness Of Breath Azithromycin [Zithromax TAB] 500 mg PO QDAY #4 tablet
[2016-12-10 13:00] VITALS: BP 153/91
[2016-12-10] MEDS: ROBITUSSIN DM PO SCH (13:25)
[2016-12-10] MEDS: K-DUR PO SCH (13:28)
[2016-12-10] MEDS: PERIDEX MM SCH (13:42)
--- NOTE | 2016-12-11 07:37 | Vascular Lab Report ---
CAROTID DUPLEX STUDY: RIGHT PSVEDV CCA PROX:[id number] CCA [id number] ICA PROX:6527 ICA MID:8728 ICA DIST:9231 ECA: 8517 VERT: 65 20 LEFT PSVEDV CCA PROX:[id number] CCA DIST:8823 ICA PROX:6525 ICA MID:8330 ICA DIST:7329 ECA: 5819 VERT: 54 14 REASON FOR EXAM: CVA. COMMENTS ON THE RIGHT: Doppler frequency analysis is consistent with 16 to 49 percent diameter reduction of the internal carotid artery. Minimal amount of plaque is seen. The common carotid artery is patent. The external carotid artery is patent. The vertebral artery has antegrade flow. COMMENTS ON THE LEFT: Doppler frequency analysis is consistent with 16 to 49 percent diameter reduction of the internal carotid artery. Minimal amount of plaque is seen. The common carotid artery is patent. The external carotid artery is patent. The vertebral artery has antegrade flow. IMPRESSION: Less than 50% diameter reduction in the internal carotid arteries bilaterally. Consider repeat carotid artery duplex in 12 months.
[2016-12-11] MEDS ORDERED: K-DUR PO SCH (10:00)
== END 2016-12-10 13:57 | disposition home health service (06) | DRG 92 ==
LOC: ED 12:37 → 3A 17:01
PROVIDERS: ADMIT Family Medicine; ATTEND Internal Medicine
DX: R29.810 Facial weakness (principal); Z68.42 Body mass index [BMI] 45.0-49.9, adult; R20.0 Anesthesia of skin; E87.6 Hypokalemia; E66.01 Morbid (severe) obesity due to excess calories; I10 Essential (primary) hypertension; F20.9 Schizophrenia, unspecified; K59.00 Constipation, unspecified; J20.9 Acute bronchitis, unspecified; Z79.899 Other long term (current) drug therapy; Z82.49 Family history of ischemic heart disease and other diseases of the circulatory system; Z98.890 Other specified postprocedural states
CPT/HCPCS: 36415; 70450; 70547; 70551; 74022; 80048; 80053; 80061; 80074; 80307; 81001; 82550; 82553; 82962; 83690; 83735; 84100; 84443; 84484; 85025; 85610; 85670; 85730; 93005; 93010; 93306; 93880; 94640; A9270-GY; J1650; J3480; J7030; J7512